=== PATIENT | female | born 1985 | race Caucasian/White ===

== ENCOUNTER 2016-10-26 09:56 | Emergency (ER) | payer OTHER ==
[~2016-10-26] VITALS: Ht 180.3 cm; Wt 83.9 kg
--- NOTE | ~2016-10-26 | EKG ---
PATIENT: AURORA MCKEON UNIT #: [id number] Ventricular Rate: 77 BPM Atrial Rate: 77 BPM P-R Interval: 160 ms QRS Duration: 86 ms Q-T Interval: 392 ms QTC Calculation(Bezet): 443 ms P [place]: 45 degrees Calculated R [place]: 46 degrees Calculated T [place]: 52 degrees Diagnosis Line: Normal sinus rhythm Diagnosis Line: Normal ECG Diagnosis Line: No previous ECGs available Diagnosis Line: Confirmed by KLAUDIA YOUNG MD ([id number]) on 10/26/2016 Diagnosis Line: 10:12:28 PM INTERPRETING MD: HECTOR CARRASCO
--- NOTE | ~2016-10-26 | CT71 ---
[facility] A Service of [facility] RADIOLOGY TEXT RESULTS PATIENT: AURORA MCKEON LOCATION: [facility] : [birth year] UNIT #: [id number] AGE: [address]: Keith Barron MD SEX: F ORDER DR: [id number] [facility] [address] [place], [place] [address] [id number] MR#: [id number] Acc #: [id number] NAME: AURORA MCKEON : 1985 SEX: F STUDY DATE/TIME: 10/26/2016 12:02 UNIT: [facility]ARA ROOM: STUDY DESCRIPTION: CT Head Wo Contrast Attending Physician: Keith Barron M.D. Ordering Physician: Keith Barron M.D. Primary Care Physician: Primary Care Physician No MEDICAL IMAGING REPORT This report is preliminary unless electronic signature is present EXAM CT head without contrast, 10/26/2016 HISTORY 31-year-old female with syncopal episode today. Right-sided head trauma status post syncopal episode. COMPARISON None. TECHNIQUE Routine unenhanced axial images performed through the brain. This CT exam was performed with one or more of the following radiation dose reduction techniques: automatic exposure control, adjustment of mA and/or kV according to patient size, and iterative reconstruction. FINDINGS No hemorrhage, acute infarction, mass lesion, or abnormal extraaxial fluid collection. No midline shift or focal mass effect. Ventricular system normal in size and configuration. No acute bony abnormality. Visualized paranasal sinuses and mastoid air cells are clear. IMPRESSION Negative unenhanced head CT. Dictated by... Gordo Woodson M.D. THIS IS AN ELECTRONICALLY VERIFIED REPORT Gordo Woodson M.D. at 10/27/2016 9:19 AM [facility] A Service [facility] RADIOLOGY TEXT RESULTS PATIENT: AUORRA MCKEON LOCATION: [facility] : 83 UNIT #: [id number] AGE: [address]: Keith Barron MD SEX: F ORDER DR: RO/jaguar TD: 10/26/2016 22:11 JOB #: [id number] MEDICAL IMAGING REPORT Page 1 of 1 COPY
[2016-10-26 10:41] LABS: BASOPHIL% 0.2 % (0-2.5); EOSINOPHIL% 0.1 % (0.0-7.0); HEMATOCRIT 41.6 % (35.0-45.0); HEMOGLOBIN 14.3 gm/dL (12.0-16.0); LYMPHOCYTE# 0.4 X10e3 (1.0-3.5); LYMPHOCYTE% 4.3 % (17.0-45.0); MEAN CORPUSCULAR HEMOGLOBIN 31.9 PG (28-34); MEAN CORPUSCULAR HGB CONC 34.3 g/dL (30-36); MEAN PLATELET VOLUME 9.9 FL (6.5-11.5); MONOCYTE# 0.6 X10e3 (0-1.0); MONOCYTE% 6.1 % (3.0-12.0); NEUTROPHIL# 9.1 X10e3 (1.5-7.1); NEUTROPHIL% 89.3 % (40-75); PLATELET COUNT 202 X10e3 (140-420); RED BLOOD COUNT 4.47 X10e (3.90-5.30); RED CELL DISTRIBUTION WIDTH 12.4 % (11.0-15.5); WHITE BLOOD COUNT 10.2 X10e3 (4.0-10.5)
[2016-10-26 10:44] LABS: DIFF IND NO
[2016-10-26 11:02] LABS: BUN/CREATININE RATIO 21.42; CALCIUM SERUM 8.5 mg/dL (8.4-10.2); CREATININE SERUM 0.7 mg/dL (0.6-1.4); GLOM FILT RATE Estimated 114.6 mL/min (>60); POTASSIUM 3.6 mmol/L (3.5-5.1)
[2016-10-26 11:07] LABS: POC - CKMB 1.6 ng/mL (0.0-7.9); POC - TROPONIN <0.05 ng/mL (<=0.05)
== END 2016-10-26 12:56 | disposition home or self-care (01) ==
LOC: CED 09:56
PROVIDERS: Emergency Medicine
DX: S09.90XA Unspecified injury of head, initial encounter (principal); F11.10 Opioid abuse, uncomplicated; F17.200 Nicotine dependence, unspecified, uncomplicated; Z98.51 Tubal ligation status; W18.30XA Fall on same level, unspecified, initial encounter
CPT/HCPCS: 36415; 70450; 80048; 82553; 82947; 84484; 84703; 85025; 93005; 96361; 96374; 99284; J2405